=== PATIENT | male | born 1990 | race Two or more races ===

== ENCOUNTER 2019-02-27 12:35 | Emergency (ER) | payer SELFPAY ==
[~2019-02-27] VITALS: Ht 167.6 cm; Wt 79.5 kg
[2019-02-27 12:48] VITALS: Ht 167.6 cm; Wt 79.5 kg
[2019-02-27] MEDS ORDERED: HYDROCODONE-A1 UDTA2 PO (14:27)
[2019-02-27] MEDS ORDERED: KEFLEX500 MG PO (14:27)
[2019-02-27 16:24] VITALS: BP 121/75
== END 2019-02-27 16:20 | disposition home or self-care (01) ==
LOC: D.ER 12:35
DX: S68.120A Partial traumatic metacarpophalangeal amputation of right index finger, initial encounter (principal); W23.0XXA Caught, crushed, jammed, or pinched between moving objects, initial encounter